=== PATIENT | female | born 1935 ===

== ENCOUNTER → 2016-12-02 | Outpatient (CLI) | payer OTHER ==
[2016-12-02 18:52] LABS: ALT/SGPT 19 U/L (12-78); AST/SGOT 14 U/L (15-37); BLOOD UREA NITROGEN 21 mg/dl (7-18); BUN/CREATININE RATIO 20.6 (10-20); CALCIUM 9.7 mg/dl (8.5-10.1); CARBON DIOXIDE 30 mmol/L (21-32); CHLORIDE 100 mmol/L (98-107); GLUCOSE 236 mg/dl (70-99); POTASSIUM 4.2 mmol/L (3.5-5.1); SODIUM 139 mmol/L (136-145)
[2016-12-02 18:55] LABS: ALB/GLOB RATIO 0.9 (0.9-2); ALKALINE PHOSPHATASE 90 U/L (45-117)
[2016-12-03 07:40] LABS: ESTIMATED AVERAGE GLUCOSE 177 mg/dl; HA1C FLAG Normal (Normal)
== END | disposition home or self-care (01) ==
LOC: C.LABSPEC 17:55
PROVIDERS: ATTEND Family Medicine
DX: E11.9 Type 2 diabetes mellitus without complications (principal)

== ENCOUNTER → 2017-10-20 | Outpatient (CLI) | payer OTHER ==
[~2017-10-20] MED LIST: AMLO5TAB3 PO; ATOR-24 PO; CALC200S6; CITA20TA9 PO; CLOP1TAB15 PO; CTP/1 PO; DOCU-94 PO; DOCU100C31 PO; FERR325T18 PO; HPRIS5M SQ; INSDGIPEN SQ; ISOS30TA3 PO; LISI-725 PO; LISI-730 PO; LPT40 PO; MELA1TAB9 PO; METF500T5 PO; NVLGIPEN SQ; ONDA4TAB10 SL; SENN-61 PO; TPRSR25 PO; TYLOTC325 PO
[2017-10-20 18:44] LABS: BASO % 0.3 %; BASO ABS # 0.02 K/uL (0-0.2); EOS % 5.3 %; EOS ABS # 0.32 K/uL (0-0.5); HEMATOCRIT 28.5 % (37-47); HEMOGLOBIN 9.2 g/dL (12.0-16.0); IG# 0.02 K/uL (0.00-0.02); LYMPH ABS # 1.09 K/uL (1.2-3.4); MEAN CORPUSCULAR HEMOGLOBIN 30.7 pg (25-34); MEAN CORPUSCULAR HGB CONC 32.3 g/dl (32-36); MONO % 8.6 %; MONO ABS # 0.52 K/uL (0.11-0.59); NEUT % 67.5 %; PLATELET COUNT 280 K/uL (130-400); RED CELL DISTRIBUTION WIDTH CV 12.6 % (11.5-14.5); RED CELL DISTRIBUTION WIDTH SD 43.8 fL (36.4-46.3); WHITE BLOOD COUNT 6.07 K/uL (4.8-10.8)
[2017-10-21 07:56] LABS: HEMOGLOBIN A1C 6.9 % (4.5-5.6)
== END | disposition home or self-care (01) ==
LOC: C.LABSPEC 12:53
PROVIDERS: ATTEND Family Medicine
DX: E11.9 Type 2 diabetes mellitus without complications (principal)